=== PATIENT | male | born 1960 | race American Indian/Alaskan Native ===

== ENCOUNTER 2017-02-07 20:58 | Emergency (ER) | payer OTHER ==
[2017-02-07 21:03] VITALS: BP 155/94; RESP 16; TEMP 97.9; O2SAT 99
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
[2017-02-07 22:11] LABS: BASO % 0.2 % (0.0-2.0); HEMOGLOBIN 12.9 g/dL (12.0-18.0); LYMPH # 0.3 K/uL (1.0-4.3); LYMPH % 3.5 % (20.0-40.0); MEAN CELL VOLUME 88.3 fl (80.0-94.0); MEAN CORPUSCULAR HEMOGLOBIN 29.2 pg (27.0-31.0); MEAN CORPUSCULAR HGB CONC 33.1 g/dL (33.0-37.0); MEAN PLATELET VOLUME 7.7 fl (7.2-11.7); MONO # 0.2 K/uL (0.0-0.8); MONO % 2.9 % (0.0-10.0); NEUT # 7.4 K/uL (1.8-7.0); NEUT % 93.4 % (50.0-75.0); NRBC % 0.1 % (0.0-0.0); PLATELET COUNT 235 K/uL (130-400); RBC 4.43 Mil/uL (4.40-5.90); WHITE BLOOD COUNT 7.9 K/uL (4.8-10.8)
[2017-02-07 22:21] LABS: ALB/GLOB RATIO 1.3 (1.0-2.1); ALBUMIN 4.2 g/dL (3.5-5.0); ALT/SGPT 36 U/L (21-72); AST/SGOT 30 U/L (17-59); BLOOD UREA NITROGEN 15 mg/dl (9-20); CALCIUM 9.4 mg/dL (8.4-10.2); GFR AFRICAN-AMERICAN > 60; GFR NON-AFRICAN AMERICAN > 60
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
[2017-02-07 23:02] VITALS: PULSE 94
[2017-02-07 23:10] LABS: LYMPHOCYTE 3 % (20-50); MONOCYTE 1 % (0-10); NEUTROPHIL 96 % (42-75); TOTAL CELLS COUNTED 100
[2017-02-07 23:11] LABS: PLATELET ESTIMATE NORMAL (NORMAL)
--- NOTE | 2017-02-08 00:17 | ED PDOC ---
- Laboratory Results Result Diagrams: 02/07/17 21:45 02/07/17 21:45 - ECG O2 Sat by Pulse Oximetry: 99 (RA) Pulse Ox Interpretation: Normal - Progress ED Course And Treament: Pt endorsed pending sobriety from heroin. 1215 - Pt reports some pain. Tylenol ordered. Disposition - Clinical Impression Clinical Impression: Heroin use, Multiple rib fractures - POA Present On Arrival: None - Disposition Disposition: Routine/Home Disposition Time: 00:17 Condition: GOOD Prescriptions: Lidocaine 5% [Lidoderm] 1 ea TD Q12H #20 patch Instructions: Rib Fracture (ED) Forms: [employer] (Kuwaiti)
--- NOTE | 2017-02-08 10:12 | CARD ---
APPROVED REPORT EKG Measurement Heart [id number] <Conclusion> Normal sinus rhythm Voltage criteria for left ventricular hypertrophy Septal infarct, age undetermined Cannot rule out Inferior infarct, age undetermined T wave abnormality, consider anterior ischemia Abnormal ECG
--- NOTE | 2017-02-08 11:20 | RAD ---
HISTORY: trauma COMPARISON: CT chest performed 02/07/17. TECHNIQUE: Chest, one view. FINDINGS: LUNGS: Emphysematous changes. No focal consolidation. Please note that chest x-ray has limited sensitivity for the detection of pulmonary masses. PLEURA: No significant pleural effusion identified. No definite pneumothorax . CARDIOVASCULAR: Heart size appears within normal limits. OSSEOUS STRUCTURES: Age indeterminate left posterior rib fractures described on CT performed 02/07/17 are not appreciated on chest x-ray. VISUALIZED UPPER ABDOMEN: Unremarkable. OTHER FINDINGS: None. IMPRESSION: No focal consolidation, significant pleural effusion, or definite pneumothorax identified. Please refer to chest CT performed 02/07/17 for more detailed discussion.
== END 2017-02-08 00:36 | disposition home or self-care (01) ==
LOC: H.ER 20:58
DX: S22.49XA Multiple fractures of ribs, unspecified side, initial encounter for closed fracture (principal); W19.XXXA Unspecified fall, initial encounter; Y93.55 Activity, bike riding; J47.9 Bronchiectasis, uncomplicated; F11.10 Opioid abuse, uncomplicated
CPT/HCPCS: 70450; 71010; 71250; 80053; 80320; 84484; 85025; 93005; 96374; 96375; 99283; J1885; J2405

== ENCOUNTER 2017-02-08 11:20 | Emergency (ER) | payer OTHER ==
--- NOTE | 2017-02-08 11:41 | ED PDOC ---
HPI: General Adult Time Seen by Provider: 02/08/17 11:31 Chief Complaint (Nursing): Chest Pain Chief Complaint (Provider): Bilateral Rib Pain History Per: Patient, EMS History/Exam Limitations: no limitations Current Symptoms Are (Timing): Still Present Recently: Seen In ED Additional Complaint(s): Patient is a 56 y/o male brought by EMS complaining of bilateral rib pain. Patient was seen in this ED yesterday with a CT of chest revealing fractures of left 10th, 11th, and 12th ribs. Patient denies any shortness of breath or new trauma. Past Medical History Reviewed: Historical Data, Nursing Documentation, Vital Signs Vital Signs: Last Vital Signs Temp 98.0 F 02/08/17 11:37 Pulse 86 02/08/17 11:37 Resp 16 02/08/17 11:37 BP 166/105 H 02/08/17 11:37 Pulse Ox 100 02/08/17 11:37 - Medical History Other PMH: Gastrointestinal Bleed - Family History Family History: States: Unknown Family Hx - Home Medications Home Medications: Ambulatory Orders Medication Instructions Recorded Lidocaine 5% [Lidoderm] 1 ea TD Q12H #20 patch 02/08/17 traMADol [Ultram] 50 mg PO Q8 #10 tab 02/08/17 - Allergies Allergies/Adverse Reactions: Allergies Allergy/AdvReac Type Severity Reaction Status Date / Time No Known Allergies Allergy Verified 02/07/17 21:00 Review of Systems ROS Statement: Except As Marked, All Systems Reviewed And Found Negative Respiratory: Negative for: Shortness of Breath Musculoskeletal: Positive for: Other (Bilateral Rib Pain) Physical Exam - Reviewed Nursing Documentation Reviewed: Yes Vital Signs Reviewed: Yes - Physical Exam Appears: Positive for: No Acute Distress Head Exam: Positive for: ATRAUMATIC, NORMOCEPHALIC Cardiovascular/Chest: Positive for: Regular Rate, Rhythm, Other (Tenderness of left posterior ribs, no flail, no ecchymosis) Respiratory: Positive for: Normal Breath Sounds (Equal bilaterally) Gastrointestinal/Abdominal: Positive for: Normal Exam, Soft. Negative for: Tenderness Neurologic/Psych: Positive for: Alert, Oriented (x3) - Laboratory Results Result Diagrams: 02/08/17 14:45 02/08/17 14:45 Medical Decision Making Medical Decision Makin:34 Initial Impression: Fractured ribs Initial Plan: --Ribs Bilateral X-Ray W/PA Chest Scribe Attestation: Documented by Payton Eugene, acting as a scribe for Mahesh Guerra MD Provider Scribe Attestation: All medical record entries made by the Scribe were at my direction and personally dictated by me. I have reviewed the chart and agree that the record accurately reflects my personal performance of the history, physical exam, medical decision making, and the department course for this patient. I have also personally directed, reviewed, and agree with the discharge instructions and disposition. Disposition - Clinical Impression Clinical Impression: Multiple rib fractures - Patient ED Disposition Is Patient to be Admitted: No Counseled Patient/Family Regarding: Studies Performed, Diagnosis, Need For Followup, Rx Given - Disposition Referrals: [facility] [Outside] Disposition: Routine/Home Disposition Time: 15:11 Condition: FAIR Prescriptions: traMADol [Ultram] 50 mg PO Q8 #10 tab Instructions: Rib Fracture (ED) Forms: [email or web address] (Armenian)
--- NOTE | 2017-02-08 14:24 | RAD ---
HISTORY: Rib fxs COMPARISON: Chest x-ray performed 02/07/17, CT chest performed 02/07/17 TECHNIQUE: Chest PA and lateral FINDINGS: LUNGS: Hyperinflation may be seen in the setting of COPD. 7 mm lateral right upper lobe nodular opacity with central lucency re-identified. Please note that chest x-ray has limited sensitivity for the detection of pulmonary masses. PLEURA: Small right greater than left pleural effusions. No definite pneumothorax . CARDIOVASCULAR: Heart size appears within normal limits. OSSEOUS STRUCTURES: No acute osseous abnormality identified. VISUALIZED UPPER ABDOMEN: Unremarkable. OTHER FINDINGS: None. IMPRESSION: Hyperinflation may be seen in the setting of COPD. 7 mm lateral right upper lobe nodular opacity with central lucency re-identified. Small ltria-mjgnyvc-vixg-left pleural effusions.
[2017-02-08 14:48] LABS: BASO % 0.9 % (0.0-2.0); EOS % 0.3 % (0.0-4.0); HEMOGLOBIN 14.3 g/dL (12.0-18.0); LYMPH # 0.7 K/uL (1.0-4.3); LYMPH % 13.2 % (20.0-40.0); MEAN CELL VOLUME 86.9 fl (80.0-94.0); MEAN CORPUSCULAR HEMOGLOBIN 29.5 pg (27.0-31.0); MEAN PLATELET VOLUME 8.1 fl (7.2-11.7); MONO # 0.5 K/uL (0.0-0.8); MONO % 8.7 % (0.0-10.0); NEUT % 76.9 % (50.0-75.0); NRBC % 0.1 % (0.0-0.0); RBC 4.84 Mil/uL (4.40-5.90); WHITE BLOOD COUNT 5.2 K/uL (4.8-10.8)
[2017-02-08 15:08] LABS: ALB/GLOB RATIO 1.3 (1.0-2.1); ALBUMIN 4.7 g/dL (3.5-5.0); ALT/SGPT 35 U/L (21-72); AST/SGOT 37 U/L (17-59); BLOOD UREA NITROGEN 19 mg/dl (9-20); CALCIUM 9.8 mg/dL (8.4-10.2); GFR AFRICAN-AMERICAN > 60; GFR NON-AFRICAN AMERICAN > 60
[2017-02-08 15:37] VITALS: BP 140/88; PULSE 88; RESP 18; TEMP 98.2; O2SAT 96
[2017-02-08] MEDS ORDERED: Lidocaine 5% Patch TD ONE (22:20)
== END 2017-02-08 15:44 | disposition home or self-care (01) ==
LOC: H.ER 11:20
DX: J90 Pleural effusion, not elsewhere classified (principal)

== ENCOUNTER 2017-02-08 21:26 | Emergency (ER) | payer OTHER ==
[2017-02-08 21:43] VITALS: BP 150/89; RESP 16; TEMP 98.2; O2SAT 97
[2017-02-08] MEDS ORDERED: Lidocaine 5% Patch TD STA (22:13)
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
[2017-02-08 23:25] VITALS: PULSE 94
== END 2017-02-08 23:32 | disposition home or self-care (01) ==
LOC: H.ER 21:26
DX: R07.81 Pleurodynia (principal)
CPT/HCPCS: 96372; 99283; J1885

== ENCOUNTER 2017-02-13 21:27 | Emergency (ER) | payer OTHER ==
[2017-02-13 21:33] VITALS: BP 127/64; PULSE 87; RESP 16; TEMP 99.2; O2SAT 98
--- NOTE | 2017-02-13 23:51 | ED PDOC ---
HPI: Psych/Substance Abuse Time Seen by Provider: 02/13/17 21:37 Chief Complaint (Nursing): Alcohol Ingestion Chief Complaint (Provider): Denies complaint History Per: Patient History/Exam Limitations: no limitations Onset/Duration Of Symptoms: Hrs Current Symptoms Are (Timing): Still Present Additional Complaint(s): Pt brought in by EMS for evaluation of alcohol abuse. Pt denies drinking alcohol. PT states he did heroin earlier today for pain control of rib fractures. Past Medical History Reviewed: Historical Data, Nursing Documentation, Vital Signs Vital Signs: Last Vital Signs Temp 99.2 F 02/13/17 21:30 Pulse 87 02/13/17 21:30 Resp 16 02/13/17 21:30 BP 127/64 02/13/17 21:30 Pulse Ox 98 02/13/17 21:30 - Medical History PMH: No Chronic Diseases - Surgical History Surgical History: No Surg Hx - Family History Family History: States: Unknown Family Hx - Living Arrangements Living Arrangements: With Family - Social History Current smoker - smoking cessation education provided: No - Home Medications Home Medications: Ambulatory Orders Medication Instructions Recorded Lidocaine 5% [Lidoderm] 1 ea TD Q12H #20 patch 02/08/17 traMADol [Ultram] 50 mg PO Q8 #10 tab 02/08/17 - Allergies Allergies/Adverse Reactions: Allergies Allergy/AdvReac Type Severity Reaction Status Date / Time No Known Allergies Allergy Verified 02/07/17 21:00 Review of Systems ROS Statement: Except As Marked, All Systems Reviewed And Found Negative Constitutional: Negative for: Fever, Chills Musculoskeletal: Positive for: Other (Rib pain) Skin: Positive for: Other Physical Exam - Reviewed Nursing Documentation Reviewed: Yes Vital Signs Reviewed: Yes - Physical Exam Appears: Positive for: Well, Non-toxic, No Acute Distress Head Exam: Positive for: ATRAUMATIC, NORMAL INSPECTION, NORMOCEPHALIC Skin: Positive for: Normal Color, Warm, DRY Eye Exam: Positive for: Normal appearance ENT: Positive for: Normal ENT Inspection Neck: Positive for: Normal, Painless ROM Cardiovascular/Chest: Positive for: Regular Rate, Rhythm Respiratory: Positive for: Normal Breath Sounds. Negative for: Accessory Muscle Use, Respiratory Distress Back: Positive for: Normal Inspection Extremity: Positive for: Normal ROM Neurologic/Psych: Positive for: Alert, Oriented - ECG O2 Sat by Pulse Oximetry: 98 Disposition - Clinical Impression Clinical Impression: Opiate abuse, continuous - Patient ED Disposition Is Patient to be Admitted: No Counseled Patient/Family Regarding: Diagnosis, Need For Followup - Disposition Disposition: Routine/Home Disposition Time: 23:52 Condition: GOOD Instructions: Narcotic Abuse (ED)
== END 2017-02-14 00:23 | disposition home or self-care (01) ==
LOC: H.ER 21:27
DX: F11.10 Opioid abuse, uncomplicated (principal)

== ENCOUNTER 2017-02-27 04:50 | Emergency (ER) | payer OTHER ==
[2017-02-27 04:58] VITALS: BP 149/96; PULSE 96; RESP 19; TEMP 97.8; O2SAT 98
--- NOTE | 2017-02-27 05:23 | ED PDOC ---
HPI: Back Time Seen by Provider: 02/27/17 04:58 Chief Complaint (Nursing): Alcohol Ingestion Chief Complaint (Provider): back pain History Per: Patient History/Exam Limitations: no limitations Onset/Duration Of Symptoms: Days (x1) Current Symptoms Are (Timing): Still Present Additional Complaint(s): 56 year old male with previous medical history of alcohol and opioid abuse, who presents to the emergency department with a complaint of lower back pain and tightness worsening with walking ongoing for 1 day. Denied any fever, chills, numbness, weakness, trauma, difficulty urinating, bloody urine, constipation or diarrhea. Patient also denied any use of alcohol or drugs today. PMD: none provided Past Medical History Reviewed: Historical Data, Nursing Documentation, Vital Signs Vital Signs: Last Vital Signs Temp 97.8 F 02/27/17 04:56 Pulse 96 H 02/27/17 04:56 Resp 19 02/27/17 04:56 BP 149/96 H 02/27/17 04:56 Pulse Ox 98 02/27/17 04:56 - Family History Family History: States: Unknown Family Hx - Social History Current smoker - smoking cessation education provided: No Alcohol: > 2 Drinks/Day Drugs: Other (heroin) - Home Medications Home Medications: Ambulatory Orders Medication Instructions Recorded Lidocaine 5% [Lidoderm] 1 ea TD Q12H #20 patch 02/08/17 traMADol [Ultram] 50 mg PO Q8 #10 tab 02/08/17 Cyclobenzaprine [Cyclobenzaprine 10 mg PO BID #15 tab 02/27/17 HCl] Ibuprofen [Motrin Tab] 600 mg PO Q6 #30 tab 02/27/17 - Allergies Allergies/Adverse Reactions: Allergies Allergy/AdvReac Type Severity Reaction Status Date / Time No Known Allergies Allergy Verified 02/27/17 04:57 Review of Systems ROS Statement: Except As Marked, All Systems Reviewed And Found Negative Constitutional: Negative for: Fever, Chills Gastrointestinal: Negative for: Diarrhea, Constipation Genitourinary Male: Negative for: Dysuria, Hematuria Musculoskeletal: Positive for: Back Pain (lower tightness). Negative for: Other (trauma) Neurological: Negative for: Weakness, Numbness Physical Exam - Reviewed Nursing Documentation Reviewed: Yes Vital Signs Reviewed: Yes - Physical Exam Appears: Positive for: Non-toxic, Uncomfortable Head Exam: Positive for: ATRAUMATIC, NORMAL INSPECTION, NORMOCEPHALIC Skin: Positive for: Normal Color Eye Exam: Positive for: Normal appearance ENT: Positive for: Normal ENT Inspection Neck: Positive for: Normal, Painless ROM. Negative for: Decreased ROM Cardiovascular/Chest: Positive for: Regular Rate, Rhythm, Chest Non Tender Respiratory: Positive for: Normal Breath Sounds. Negative for: Decreased Breath Sounds, Respiratory Distress Gastrointestinal/Abdominal: Positive for: Normal Exam, Soft. Negative for: Tenderness Back: Positive for: Vertebral Tenderness (para-lumbar). Negative for: Normal Inspection, Decreased ROM (or midline tenderness), Other (loss of sensation in saddle seen) Extremity: Positive for: Normal ROM (lower bilaterally). Negative for: Pedal Edema (bilateral), Calf Tenderness (bilateral), Deformity (lower) Neurologic/Psych: Positive for: Alert (x3), Oriented. Negative for: Motor/ Sensory Deficits - ECG O2 Sat by Pulse Oximetry: 98 (RA) Pulse Ox Interpretation: Normal Medical Decision Making Medical Decision Making: Initial Impression: Musculoskeletal back pain Initial Plan: * Flexeril 10mg PO * Motrin tab 600mg PO ____ Time: 0600 --Upon provider reevaluation, patient is medically stable and requires no further treatment in the ED at this time. Patient will be discharged home. Counseling was provided and all questions were answered regarding diagnosis and need for follow up with PMD. There is agreement to discharge plan. Return if symptoms persist or worsen. Clinical Impression: Back pain Scribe Attestation: Documented by Taryn Vo-Joy, acting as a scribe for Derick Harding MD. Provider Scribe Attestation: All medical record entries made by the Scribe were at my direction and personally dictated by me. I have reviewed the chart and agree that the record accurately reflects my personal performance of the history, physical exam, medical decision making, and the department course for this patient. I have also personally directed, reviewed, and agree with the discharge instructions and disposition. Disposition - Clinical Impression Clinical Impression: Back pain - Patient ED Disposition Is Patient to be Admitted: No Counseled Patient/Family Regarding: Studies Performed, Diagnosis, Rx Given - Disposition Referrals: [facility] [Outside] Disposition: Routine/Home Disposition Time: 06:00 Condition: STABLE Prescriptions: Cyclobenzaprine [Cyclobenzaprine HCl] 10 mg PO BID #15 tab Ibuprofen [Motrin Tab] 600 mg PO Q6 #30 tab Instructions: Back Pain (ED) Forms: [employer] (Thai)
== END 2017-02-27 07:01 | disposition home or self-care (01) ==
LOC: H.ER 04:50
DX: M54.9 Dorsalgia, unspecified (principal); F11.10 Opioid abuse, uncomplicated

== ENCOUNTER 2017-02-27 13:30 | Emergency (ER) | payer OTHER ==
[2017-02-27 13:40] VITALS: BP 153/103; PULSE 84; RESP 18; TEMP 97.5; O2SAT 98
[2017-02-27] MEDS ORDERED: Naproxen 500 MG TAB PO STA (13:48)
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
[2017-02-27] MEDS ORDERED: Naproxen 500 MG TAB PO ONE (13:55)
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
== END 2017-02-27 16:15 | disposition home or self-care (01) ==
LOC: H.ER 13:30
DX: Z87.81 Personal history of (healed) traumatic fracture (principal); M54.9 Dorsalgia, unspecified; R07.81 Pleurodynia